=== PATIENT | female | born 2000 | race Asian ===

== ENCOUNTER 2019-01-26 17:59 | Emergency (ER) | payer OTHER ==
[~2019-01-26] VITALS: Ht 152.4 cm; Wt 57.1 kg
[2019-01-26 18:25] VITALS: BP 98/63
[2019-01-26 19:01] LABS: BASOPHILS # (AUTO) 0.04 x10^3/uL (0-0.3); BASOPHILS % (AUTO) 1 % (0-1); EOSINOPHILS # (AUTO) 0.19 x10^3/uL (0-0.8); EOSINOPHILS % (AUTO) 3 % (1-7); LYMPHOCYTES # (AUTO) 2.39 x10^3/uL (1-6.1); LYMPHOCYTES % (AUTO) 37 % (22-44); MD NO; MEAN CORPUSCULAR HEMOGLOBIN 29.7 pg (27.0-34.8); MEAN CORPUSCULAR HGB CONC 33.9 g/dL (32.4-35.8); MEAN CORPUSCULAR VOLUME 87.6 fL (80-100); MEAN PLATELET VOLUME 7.7 fL (7.4-10.4); MONOCYTES # (AUTO) 0.29 x10^3/uL (0-1.4); MONOCYTES % (AUTO) 5 % (2-9); NEUTROPHILS % (AUTO) 55 % (42-75); PLATELET COUNT 302 x10^3/uL (130-400); RED BLOOD COUNT 4.99 x10^6/uL (3.82-5.3); RED CELL DISTRIBUTION WIDTH 14.5 % (9.6-15.2)
[2019-01-26 19:09] LABS: ALBUMIN 4.4 g/dL (3.4-5.0); ANION GAP 6 mmol/L (5-15); CALCIUM 9.3 mg/dL (8.5-10.1); CHLORIDE 108 mmol/L (98-107)
[2019-01-26 19:16] LABS: ALANINE AMINOTRANSFERASE 28 U/L (12-78); ALKALINE PHOSPHATASE 62 U/L (45-117); BILIRUBIN,TOTAL 0.4 mg/dL (0.2-1.0); CREATININE 0.84 mg/dL (0.55-1.02); TOTAL PROTEIN 8.1 g/dL (6.4-8.2)
[2019-01-26 20:47] LABS: MICROSCOPIC NOT IND
[2019-01-26 20:48] LABS: CULTURE INDICATED? NO
--- NOTE | 2019-01-26 21:15 | NUR ---
PT COMPLAINS OF LOWER ABD PAIN THAT IS INTERMITTENT. PT STATES PAIN STARTED SOMETIME TODAY. DENIES N/V/D. LMP WAS 01/23/19. PT DENIES PAIN WITH URINATION. LBM WAS TODAY. PT ALSO DENIES FLANK PAIN
[2019-01-26] MEDS ORDERED: MAALOX/HYOSCYAMINE/LIDOCAINE 45 ML BTL ONE (21:30)
[2019-01-26] MEDS ORDERED: MAALOX/HYOSCYAMINE/LIDOCAINE 45 ML BTL PO ONE (21:30)
== END 2019-01-26 21:42 | disposition home or self-care (01) ==
LOC: ED 21:15
DX: R10.84 Generalized abdominal pain (principal)
CPT/HCPCS: 36415; 80053; 81003; 83690; 84703; 85025; 99283